=== PATIENT | female | born 1940 | race Caucasian/White ===

== ENCOUNTER 2021-01-27 13:37 | Inpatient (IN) | payer OTHER, BC ==
[2021-01-27] MEDS ORDERED: MORPHINE 4 MG/ML SYR IV PRN (13:51)
[2021-01-27] MEDS ORDERED: ACETAMINOPHEN 500 MG TAB PO PRN (13:51)
[2021-01-27] MEDS ORDERED: DIGOXIN 0.25 MG/ML AMP IV ONE (13:58)
[2021-01-27 14:33] VITALS: BMI 24.9
[2021-01-27] MEDS ORDERED: ENOXAPARIN 80 MG/0.8 ML SQ ONE (17:00)
[2021-01-27] MEDS: ALPRAZOLAM 0.25 MG TABLET PO PRN (19:49)
[2021-01-27] MEDS ORDERED: METOPROLOL TAR 25 MG TAB PO SCH (21:00)
[2021-01-27 23:51] VITALS: O2SAT 97
[2021-01-28 03:29] LABS: Absolute Lymphocytes (CBC) 1.8 K/uL (0.7-4.9); Hematocrit 35.8 % (36.0-45.0); Lymphocytes % 40.5 % (15.3-44.8); MPV 8.4 fL (7.6-11.3); RBC Red Blood Cell Count 3.76 M/uL (3.86-4.86)
[2021-01-28 03:59] LABS: BUN Blood Urea Nitrogen 15 mg/dL (7-18); Bicarbonate 26 mmol/L (21-32); Glucose Level 86 mg/dL (74-106); HDL Cholesterol 41 mg/dL (40-60); LDL Cholesterol, Calculated 177 (<130); NT PRO-BNP 2905 pg/mL (<450); Potassium 4.1 mmol/L (3.5-5.1); Sodium Level 143 mmol/L (136-145); Troponin I < 0.02 ng/mL (0.0-0.045)
[2021-01-28] MEDS ORDERED: ENOXAPARIN 80 MG/0.8 ML SQ SCH (05:00)
[2021-01-28 05:16] LABS: Blood Morphology Comment NOT SEEN (NOT SEEN); Platelet Estimate ADEQ
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
[2021-01-28] MEDS ORDERED: SOTALOL HCL 80 MG TAB PO ONE (07:18)
[2021-01-28] MEDS: ASPIRIN 81 MG CHEWABLE TABLET PO SCH (08:46)
[2021-01-28] MEDS: DOCOSAHEXANOIC AC/EPA 1000 MG PO SCH (08:48)
[2021-01-28] MEDS: LEVOTHYROXINE SOD 0.075 MG TAB PO SCH (08:48)
[2021-01-28] MEDS: PANTOPRAZOLE 40MG TABLET PO SCH (08:54)
[2021-01-28] MEDS ORDERED: ASPIRIN EC 81 MG TAB PO SCH (09:00)
[2021-01-28] MEDS ORDERED: ENOXAPARIN 40 MG/0.4 ML SQ SCH (09:00)
[2021-01-28] MEDS ORDERED: HOME MED 1 EA UNK (Omeprazole [Omeprazole] 20 MG Capsule.Dr) PO SCH (09:00)
--- NOTE | 2021-01-28 13:00 | ECHO ---
HEIGHT: 5 ft 8 in WEIGHT: 164 lb 0 oz DATE OF STUDY: 01/28/[address]: Nilton Grady MD 2-DIMENSIONAL: YES M.MODE: YES DOPPLER: YES COLOR FLOW: YES TDS: NO PORTABLE: NO DEFINITY: NO BUBBLE STUDY: NO DIAGNOSIS: ATRIAL FIBRILLATION CARDIAC HISTORY: CATHERIZATION: SURGERY: PROSTHETIC VALVE: PACEMAKER: MEASUREMENTS (cm) DIASTOLIC (NORMALS) SYSTOLIC (NORMALS) IVSd 1.1 (0.6-1.2) LA Diam 4.1 (1.9-4.0) LVEF 69% LVIDd 3.9 (3.5-5.7) LVIDs 2.4 (2.0-3.5) %FS 38% LVPWd 1.1 (0.6-1.2) Ao Diam 2.5 (2.0-3.7) 2 DIMENSIONAL ASSESSMENT: RIGHT ATRIUM: NORMAL LEFT ATRIUM: DILATED RIGHT VENTRICLE: NORMAL LEFT VENTRICLE: NORMAL TRICUSPID VALVE: NORMAL MITRAL VALVE: NORMAL PULMONIC VALVE: NORMAL AORTIC VALVE: NORMAL PERICARDIAL EFFUSION: NONE AORTIC ROOT: NORMAL LEFT VENTRICULAR WALL MOTION: NORMAL DOPPLER/COLOR FLOW: NORMAL COMMENTS: MILD LEFT ATRIAL ENLARGEMENT. NORMAL LEFT VENTRICULAR SIZE AND FUNCTION. NO WALL MOTION ABNORMALITY. NO THROMBUS. ATRIAL FIBRILLATION. TECHNOLOGIST: Sanjiv WALTON
[2021-01-28] MEDS: SOTALOL HCL 80 MG TAB PO SCH (17:27)
[2021-01-28] MEDS: APIXABAN 5 MG TABLET PO SCH ×2 (17:28→19:54)
[2021-01-28] MEDS: ALPRAZOLAM 0.25 MG TABLET PO PRN (19:42)
[2021-01-28] MEDS ORDERED: EZETIMIBE 10 MG TAB PO SCH (21:00)
[2021-01-29] MEDS: LEVOTHYROXINE SOD 0.075 MG TAB PO SCH (06:00)
[2021-01-29] MEDS: SOTALOL HCL 80 MG TAB PO SCH (06:15)
--- NOTE | 2021-01-29 09:08 | RAD REPORT ---
EXAM DESCRIPTION: CT - Chest For Pe Angio - 01/29/2021 8:48 am CLINICAL HISTORY: Shortness of breath and atrial fibrillation COMPARISON: None. TECHNIQUE: Dynamically enhanced axial 3 mm thick images of the chest were obtained during administra tion of <100> mL Isovue 370 IV contrast. Coronal and oblique reconstruction images were generated and reviewed. Exam utilizes a protocol for optimal evaluation of pulmonary arterial tree. Maximum intensity projections 3D imaging was utilized All CT scans are performed using dose optimization technique as appropriate and may include automated exposure control or mA/KV adjustment according to patient size. FINDINGS: A pulmonary embolus is not seen. A thoracic aortic aneurysm is not noted. A pleural effusion is not seen. A pericardial effusion is not seen. A lung consolidation is not present. Centrilobular emphysema is present. Calcified hilar and calcifie d mediastinal nodes are present. Calcified lung granulomas IMPRESSION: Negative for a pulmonary embolism. Calcified hilar, calcified mediastinal lymph nodes and calcified lung granulomas indicative of prior granulomatous disease
[2021-01-29 09:20] VITALS: BP 131/70; TEMP 97
[2021-01-29] MEDS ORDERED: SOTALOL HCL 80 MG TAB PO ONE (09:21)
[2021-01-29] MEDS: DOCOSAHEXANOIC AC/EPA 1000 MG PO SCH (10:14)
[2021-01-29] MEDS: APIXABAN 5 MG TABLET PO SCH (10:15)
[2021-01-29] MEDS: ASPIRIN 81 MG CHEWABLE TABLET PO SCH (10:15)
[2021-01-29] MEDS: PANTOPRAZOLE 40MG TABLET PO SCH (10:15)
--- NOTE | 2021-01-29 10:52 | P.PN ---
Subjective Date of Service: 01/28/21 Subjective: No new changes, No C/O voiced, Improving Review of Systems 10-point ROS is otherwise unremarkable Physical Examination - Vital Signs Temperature: 97 F Blood Pressure: 131/70 Pulse: 88 Respirations: 18 Pulse Ox (%): 96 - Physical Exam General: Alert, In no apparent distress, Oriented x3 Respiratory: Diminished, Crackles/rales Cardiovascular: Regular rate/rhythm, Normal S1 S2, Systolic murmur Gastrointestinal: Normal bowel sounds, Soft and benign, Non-distended, No tenderness Musculoskeletal: No clubbing, No swelling, No tenderness Neurological: Sensation intact, Cranial nerves 3-12 intact - Studies Medications List Reviewed: Yes Assessment & Plan - Problems (Diagnosis) (1) Atrial fibrillation with rapid ventricular response Current Visit: Yes Status: Acute (2) Hypothyroid Current Visit: Yes Status: Acute (3) HTN (hypertension) Current Visit: Yes Status: Acute - Plan Plan: 1. Continue with medication for rate control; sotalol 80 mg b.i.d. along with anticoagulation 2. Echocardiogram-LV function 3. Cardiology consultation appreciated 4. Thyroid studies are NL 5. CT chest pending as patient haqs some dyspnea 6. Monitor on telemetry 7. Gentle hydration 8. GI and DVT prophylaxis Discharge Plan: Home Plan to discharge in: Greater than 2 days - Advance Directives Does patient have a Living Will: No Does patient have a Durable POA for Healthcare: No - Code Status/Comfort Care Code Status: Full Code Critical Care: No Time Spent Managing PTS Care (In Minutes): 35
--- NOTE | 2021-01-31 09:44 | CON ---
Date of Consultation: 01/28/2021 Reason For Consultation: Atrial fibrillation. History Of Present Illness: Ms. Rooney is an 80-year-old woman with history of dyslipidemia, hyperte nsion, hypothyroidism, gastroesophageal reflux disease, came in with palpitation, atrial fibrillation , was found to have heart rate in the upper 80s, was taking metoprolol 50 b.i.d. at home. [place] palpi tation and felt some chest pain with her atrial fibrillation. Denied PND, orthopnea, or pedal edema. Denied any syncope. Denied any fever or chills. Denied any nausea, vomiting, or diaphoresis. Past Medical History: As stated above. Allergies: SHE IS ALLERGIC TO LIPITOR. Review of Systems: Negative. Social History: Negative. Family History: Negative. Medications: Include omeprazole, aspirin, Synthroid, lisinopril, metoprolol 50 b.i.d. Physical Examination: General: She was in atrial fibrillation at the rate of 80s. No acute distress. Vital Signs: Stable. Afebrile. HEENT: Negative. Neck: Supple without any bruit, lymphadenopathy, JVD, or thyromegaly. Chest: Clear to auscultation and percussion. Cardiac: Irregularly irregular rhythm and rate without murmurs, gallops, or rubs. Abdomen: Benign. Extremities: No clubbing, cyanosis, or edema. Diagnostic Data: All normal except for the atrial fibrillation. Impression And Plan: Atrial fibrillation, new-onset. I will switch her from metoprolol to sotalol 8 0 mg b.i.d. Obtain an echocardiogram. She needs to be on an anticoagulant when she goes home, yolande Resendiz or Xarelto, and leave that after Dr. Grady will see what the echocardiogram shows. STEPHEN/RHONDA Voice ID: [id number] Report ID: [id number]
--- NOTE | 2021-01-31 10:44 | PN ---
Date of Progress Note: 01/29/2021 Ms. Rooney came in with new onset atrial fibrillation. She was placed on sotalol 80 mg b.i.d. She r emains in atrial fibrillation, rate controlled. No symptoms. Echocardiogram is normal. I think she can go home on Betapace 80 b.i.d. instead of the metoprolol. Continue her lisinopril, Synthroid, as pirin, omeprazole. She needs to be on an anticoagulant. I will leave that up to Dr. Una maki her he wants to put her on Xarelto or Eliquis. I will see her in the office in the next week or two. She will need an outpatient Lexiscan and if she remains in atrial fibrillation in the next 3 weeks, I would do an electric cardioversion. STEPHEN/RHONDA Voice ID: [id number] Report ID: [id number]
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
== END 2021-01-29 11:49 | disposition home or self-care (01) | DRG 310 ==
LOC: 4TH 13:37
PROVIDERS: ADMIT Hospitalist; ATTEND Hospitalist
DX: I48.91 Unspecified atrial fibrillation (principal); E03.9 Hypothyroidism, unspecified; I10 Essential (primary) hypertension; E78.5 Hyperlipidemia, unspecified
CPT/HCPCS: 36415; 71275; 80048; 80061; 82565; 83880; 84439; 84443; 84484; 85025; 93306; J1160; Q9967

== ENCOUNTER 2021-03-19 10:23 | Day surgery (SDC) | payer OTHER, BC ==
[2021-03-17 12:15] LABS: Protime INR 1.05
--- NOTE | 2021-03-17 12:20 | RAD REPORT ---
EXAM DESCRIPTION: RAD - Chest Pa And Lat (2 Views) - 03/17/2021 12:08 pm CLINICAL HISTORY: preop COMPARISON: Chest For Pe Angio dated 01/29/2021 FINDINGS: No evidence of edema or pneumonia. The heart size is within normal limits.No acute osseous abnormality. No significant pleural effusions or pneumothorax. Calcified nodule in the right mid aster g. IMPRESSION: No acute cardiopulmonary disease.
[2021-03-17 12:22] LABS: Potassium 4.8 mmol/L (3.5-5.1)
[2021-03-17 12:27] LABS: Absolute Lymphocytes (CBC) 1.1 K/uL (0.7-4.9); Hematocrit 38.7 % (36.0-45.0); Lymphocytes % 27.3 % (15.3-44.8); RBC Red Blood Cell Count 4.03 M/uL (3.86-4.86)
--- NOTE | 2021-03-18 16:57 | EKG ---
Test Date: 2021-03-17 Test Time: 10:45:57 Semiconductor Technician: KEEGAN MEASUREMENT RESULTS: Intervals: Rate: 56 MS: 198 QRSD: 126 QT: 472 QTc: 455 [place]: P: 86 MS: 198 QRS: 8 T: 51 INTERPRETIVE STATEMENTS: Sinus bradycardia Left bundle branch block Abnormal ECG No previous ECG available for comparison Electronically Signed On 03-18-21 16:53:56 CDT by Chuy Martínez
[2021-03-19] MEDS ORDERED: NA CHLORIDE 0.9% 500 ML ONE (11:19)
[2021-03-19] MEDS ORDERED: MIDAZOLAM HCL 2 MG/2 ML INJ ONE (11:58)
[2021-03-19] MEDS ORDERED: FENTANYL CITR 100 MCG/2 ML ONE (11:58)
[2021-03-19] MEDS ORDERED: NA CHLORIDE 0.9% 0 ML ONE (11:59)
[2021-03-19] MEDS ORDERED: ATROPINE SULF 1 MG/10 ML SYR IV ONE (11:59)
[2021-03-19] MEDS ORDERED: HEPA 1000U/500MLS 1,000 UNIT/500 ML BAG IV ONE (12:00)
[2021-03-19 12:47] VITALS: TEMP 96.9
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
[2021-03-19 14:04] VITALS: BP 165/60; O2SAT 99
== END 2021-03-19 14:34 | disposition home or self-care (01) ==
LOC: CCL 10:23
DX: I25.10 Atherosclerotic heart disease of native coronary artery without angina pectoris (principal); I48.0 Paroxysmal atrial fibrillation; I10 Essential (primary) hypertension; E78.2 Mixed hyperlipidemia; K21.9 Gastro-esophageal reflux disease without esophagitis; E03.9 Hypothyroidism, unspecified; Z79.01 Long term (current) use of anticoagulants; Z88.8 Allergy status to other drugs, medicaments and biological substances; Z20.822 Contact with and (suspected) exposure to COVID-19
CPT/HCPCS: 93005; 85025; 80048; 36415; 85610; 85730; 71046; 93454; U0003; C1893; C1760; J2250; J3010; J7040; J1644; J0583

== ENCOUNTER 2024-01-23 14:53 | Emergency (ER) | payer OTHER, BC ==
--- OUTSIDE RECORDS SUMMARY | 2024-01-23 14:56 | XMS REPORT | Continuity of Care Document ---
Author Name Unknown Address [address] [facility]. [address] [place] [address] [facility] thconnect Address [address] [facility] [address] [place] [address] Care Team Providers Care Route Sales Representative Name Role Phone Toney Nava Attending Clinician Unavailable Payers Payer Name Policy Type Policy Number Effective Date Expirati on Date Source [place] [address] [id number] 2020 00:00:00 [facility] Problems Condition Name Condition Details Condition Category Status Onset Date Resolution Date Last Treatment Date Treating Clinician Comments Source [id number] Acquired hypothyroi dism Problem [facility] [id number] Chronic obstructiv e pulmonary disease, unspecifie d COPD type Problem [facility] [id number] Pulmonary nodule Problem [facility] Essential hypertensi on Essential (primary) hypertensi on Problem [facility] [id number] Mixed hyperlipid emia Problem [facility] [id number] Cardiac arrhythmia , unspecifie d cardiac arrhythmia type Problem [facility] [id number] Lung granuloma Problem [facility] Atrial fibrillati on PAF (paroxysma l atrial fibrillati on) Problem [facility] [id number] Coronary artery disease involving [place] heart without angina pectoris, unspecifie d vessel or lesion type Problem [facility] Malignant neoplasm of upper lobe, bronchus or lung Lung cancer, upper lobe Problem [facility] Social History Social Habit Start Date Stop Date Quantity Comments Source Sex Assigned At [facility] History of Tobacco Use [facility] Smoking Status Start Date Stop Date Source Former Smoker 2023-12-20 00:00:00 2023-12-20 00:00:00 [facility] Never Smoker [facility] Medications Ordered Medication Name Filled Medication Name Start Date Stop Date Current Medication? Ordering Clinician Indication Dosage Frequency Signature (SIG) Comments Components Source Lisinopril 10 MG Lisinopril 10 MG 18 00:00: 00 No 1{table t} QD Lisinopril 10 MG Tiotropium [place] Monohydrate 18 MCG Tiotropium [place] Monohydrate 18 MCG 1- 00:00: 00 No QD Tiotropium [place] Monohydrat e 18 MCG Tiotropium [place] Monohydrate 18 MCG Tiotropium [place] Monohydrate 18 MCG 1-11 00:00: 00 No QD Tiotropium [place] Monohydrat e 18 MCG Tiotropium [place] Monohydrate 18 MCG Tiotropium [place] Monohydrate 18 MCG 1-11 00:00: 00 No QD Tiotropium [place] Monohydrat e 18 MCG Spiriva Respimat 1.25 MCG/ACT Spiriva Respimat 1.25 MCG/ACT 2023-0 1-04 00:00: 00 No 2{puffs } QD Spiriva Respimat 1.25 MCG/ACT Spiriva Respimat 1.25 MCG/ACT Spiriva Respimat 1.25 MCG/ACT 2023-0 1-04 00:00: 00 No 2{puffs } QD Spiriva Respimat 1.25 MCG/ACT Spiriva Respimat 1.25 MCG/ACT Spiriva Respimat 1.25 MCG/ACT 2023-0 1-04 00:00: 00 No 2{puffs } QD Spiriva Respimat 1.25 MCG/ACT Simvastatin 40 MG Simvastatin 40 MG No Simvastati n 40 MG amLODIPine Besylate 5 MG amLODIPine Besylate 5 MG No 1{table t} QD amLODIPine Besylate 5 MG Eliquis 5 MG Eliquis 5 MG No 1{table t} BID Eliquis 5 MG Ezetimibe 10 MG Ezetimibe 10 MG No Ezetimibe 10 MG Multivitami n Adults 50+ Multivitami n Adults 50+ No Multivitam in Adults 50+ Aspirin 81 MG Aspirin 81 MG No 1{table t} QD Aspirin 81 MG Sotalol HCl 80 MG Sotalol HCl 80 MG No Sotalol HCl 80 MG Levothyroxi ne Sodium 75 MCG Levothyroxi ne Sodium 75 MCG No Levothyrox ine Sodium 75 MCG Simvastatin 40 MG Simvastatin 40 MG No Simvastati n 40 MG amLODIPine Besylate 5 MG amLODIPine Besylate 5 MG No 1{table t} QD amLODIPine Besylate 5 MG Eliquis 5 MG Eliquis 5 MG No 1{table t} BID Eliquis 5 MG Ezetimibe 10 MG Ezetimibe 10 MG No Ezetimibe 10 MG Multivitami n Adults 50+ Multivitami n Adults 50+ No Multivitam in Adults 50+ Aspirin 81 MG Aspirin 81 MG No 1{table t} QD Aspirin 81 MG Sotalol HCl 80 MG Sotalol HCl 80 MG No Sotalol HCl 80 MG Levothyroxi ne Sodium 75 MCG Levothyroxi ne Sodium 75 MCG No Levothyrox ine Sodium 75 MCG Simvastatin 40 MG Simvastatin 40 MG No Simvastati n 40 MG amLODIPine Besylate 5 MG amLODIPine Besylate 5 MG No 1{table t} QD amLODIPine Besylate 5 MG Eliquis 5 MG Eliquis 5 MG No 1{table t} BID Eliquis 5 MG Eliquis 5 MG Eliquis 5 MG No 1{table t} BID Eliquis 5 MG Ezetimibe 10 MG Ezetimibe 10 MG No Ezetimibe 10 MG Multivitami n Adults 50+ Multivitami n Adults 50+ No Multivitam in Adults 50+ Rice 3 Rice 3 No Rice 3 Aspirin 81 MG Aspirin 81 MG No 1{table t} QD Aspirin 81 MG Sotalol HCl 80 MG Sotalol HCl 80 MG No Sotalol HCl 80 MG Levothyroxi ne Sodium 75 MCG Levothyroxi ne Sodium 75 MCG No Levothyrox ine Sodium 75 MCG Simvastatin 40 MG Simvastatin 40 MG No Simvastati n 40 MG amLODIPine Besylate 5 MG amLODIPine Besylate 5 MG No 1{table t} QD amLODIPine Besylate 5 MG Eliquis 5 MG Eliquis 5 MG No 1{table t} BID Eliquis 5 MG Levothyroxi ne Sodium 75 MCG Levothyroxi ne Sodium 75 MCG No Levothyrox ine Sodium 75 MCG Sotalol HCl 80 MG Sotalol HCl 80 MG No Sotalol HCl 80 MG Ezetimibe 10 MG Ezetimibe 10 MG No Ezetimibe 10 MG Ezetimibe 10 MG Ezetimibe 10 MG No Ezetimibe 10 MG Multivitami n Adults 50+ Multivitami n Adults 50+ No Multivitam in Adults 50+ Simvastatin 40 MG Simvastatin 40 MG No Simvastati n 40 MG Eliquis 5 MG Eliquis 5 MG No 1{table t} BID Eliquis 5 MG Levothyroxi ne Sodium 75 MCG Levothyroxi ne Sodium 75 MCG No Levothyrox ine Sodium 75 MCG Sotalol HCl 80 MG Sotalol HCl 80 MG No Sotalol HCl 80 MG Aspirin 81 MG Aspirin 81 MG No 1{table t} QD Aspirin 81 MG Aspirin 81 MG Aspirin 81 MG No 1{table t} QD Aspirin 81 MG Ferrous Sulfate 325 (65 Fe) MG Ferrous Sulfate 325 (65 Fe) MG No 1{table t} Ferrous Sulfate 325 (65 Fe) MG Simvastatin 40 MG Simvastatin 40 MG No Simvastati n 40 MG amLODIPine Besylate 10 MG amLODIPine Besylate 10 MG No QD amLODIPine Besylate 10 MG Eliquis 5 MG Eliquis 5 MG No 1{table t} BID Eliquis 5 MG Rice 3 Rice 3 No Rice 3 Levothyroxi ne Sodium 75 MCG Levothyroxi ne Sodium 75 MCG No Levothyrox ine Sodium 75 MCG Sotalol HCl 80 MG Sotalol HCl 80 MG No Sotalol HCl 80 MG Ezetimibe 10 MG Ezetimibe 10 MG No Ezetimibe 10 MG Aspirin 81 MG Aspirin 81 MG No 1{table t} QD Aspirin 81 MG Simvastatin 40 MG Simvastatin 40 MG No Simvastati n 40 MG amLODIPine Besylate 10 MG amLODIPine Besylate 10 MG No QD amLODIPine Besylate 10 MG Eliquis 5 MG Eliquis 5 MG No 1{table t} BID Eliquis 5 MG Rice 3 Rice 3 No Rice 3 Levothyroxi ne Sodium 75 MCG Levothyroxi ne Sodium 75 MCG No Levothyrox ine Sodium 75 MCG Sotalol HCl 80 MG Sotalol HCl 80 MG No Sotalol HCl 80 MG Ezetimibe 10 MG Ezetimibe 10 MG No Ezetimibe 10 MG Aspirin 81 MG Aspirin 81 MG No 1{table t} QD Aspirin 81 MG Simvastatin 40 MG Simvastatin 40 MG No Simvastati n 40 MG amLODIPine Besylate 10 MG amLODIPine Besylate 10 MG No QD amLODIPine Besylate 10 MG Ezetimibe 10 MG Ezetimibe 10 MG No Ezetimibe 10 MG Multivitami n Adults 50+ Multivitami n Adults 50+ No Multivitam in Adults 50+ Aspirin 81 MG Aspirin 81 MG No 1{table t} QD Aspirin 81 MG Sotalol HCl 80 MG Sotalol HCl 80 MG No Sotalol HCl 80 MG Levothyroxi ne Sodium 75 MCG Levothyroxi ne Sodium 75 MCG No Levothyrox ine Sodium 75 MCG Simvastatin 40 MG Simvastatin 40 MG No Simvastati n 40 MG amLODIPine Besylate 5 MG amLODIPine Besylate 5 MG No 1{table t} QD amLODIPine Besylate 5 MG Eliquis 5 MG Eliquis 5 MG No 1{table t} BID Eliquis 5 MG Ezetimibe 10 MG Ezetimibe 10 MG No Ezetimibe 10 MG Dulcolax Dulcolax No Dulcolax Aspirin 81 MG Aspirin 81 MG No 1{table t} QD Aspirin 81 MG Sotalol HCl 80 MG Sotalol HCl 80 MG No Sotalol HCl 80 MG Levothyroxi ne Sodium 75 MCG Levothyroxi ne Sodium 75 MCG No Levothyrox ine Sodium 75 MCG Simvastatin 40 MG Simvastatin 40 MG No Simvastati n 40 MG amLODIPine Besylate 5 MG amLODIPine Besylate 5 MG No 1{table t} QD amLODIPine Besylate 5 MG Eliquis 5 MG Eliquis 5 MG No 1{table t} BID Eliquis 5 MG Ezetimibe 10 MG Ezetimibe 10 MG No Ezetimibe 10 MG Multivitami n Adults 50+ Multivitami n Adults 50+ No Multivitam in Adults 50+ Aspirin 81 MG Aspirin 81 MG No 1{table t} QD Aspirin 81 MG Sotalol HCl 80 MG Sotalol HCl 80 MG No Sotalol HCl 80 MG Levothyroxi ne Sodium 75 MCG Levothyroxi ne Sodium 75 MCG No Levothyrox ine Sodium 75 MCG Vital Signs Vital Name Observation Time Observation Value Comments S jesus height 2023-12-20 11:20:00 68.5 [in_i] Comm on [facility] weight 2023-12-20 11:20:00 147.4 [lb_av] Co on [facility] temperature 2023-12-20 11:20:00 97.5 [degF] Com mon [facility] bmi 2023-12-20 11:20:00 22.08 kg/m2 Comm on [facility] oximetry 2023-12-20 11:20:00 93 % Commo n [facility] respiratory rate 2023-12-20 11:20:00 16 /min [facility] blood pressure systolic 2023-12-20 11:20:00 148 mm[Hg] [facility] blood pressure diastolic 2023-12-20 11:20:00 72 mm[Hg] [facility] height 2023-11-18 10:40:00 68.5 [in_i] Comm on [facility] weight 2023-11-18 10:40:00 145.0 [lb_av] Co [facility] temperature 2023-11-18 10:40:00 97.3 [degF] Com [facility] bmi 2023-11-18 10:40:00 21.72 kg/m2 Comm on [facility] oximetry 2023-11-18 10:40:00 96 % Commo n [facility] respiratory rate 2023-11-18 10:40:00 16 /min Common [facility] blood pressure systolic 2023-11-18 10:40:00 148 mm[Hg] Common [facility] blood pressure diastolic 2023-11-18 10:40:00 74 mm[Hg] [facility] height 2023-08-19 10:00:00 68.5 [in_i] Comm on [facility] weight 2023-08-19 10:00:00 155.6 [lb_av] Co mmon [facility] temperature 2023-08-19 10:00:00 96.6 [degF] Com [facility] bmi 2023-08-19 10:00:00 23.31 kg/m2 Comm on [facility] oximetry 2023-08-19 10:00:00 96 % Commo n [facility] respiratory rate 2023-08-19 10:00:00 16 /min Common [facility] blood pressure systolic 2023-08-19 10:00:00 132 mm[Hg] [facility] diastolic 2023-08-19 10:00:00 76 mm[Hg] [facility] height 2023-08-05 10:40:00 68.5 [in_i] Comm on [facility] weight 2023-08-05 10:40:00 153.6 [lb_av] Co mmon [facility] temperature 2023-08-05 10:40:00 97.5 [degF] Com [facility] bmi 2023-08-05 10:40:00 23.01 kg/m2 Comm on [facility] oximetry 2023-08-05 10:40:00 97 % Commo n [facility] respiratory rate 2023-08-05 10:40:00 16 /min Common [facility] blood pressure systolic 2023-08-05 10:40:00 124 mm[Hg] Common [facility] blood pressure diastolic 2023-08-05 10:40:00 66 mm[Hg] Common [facility] height 2023-07-22 15:40:00 68.5 [in_i] Comm on [facility] weight 2023-07-22 15:40:00 154.0 [lb_av] Co mmon [facility] temperature 2023-07-22 15:40:00 97.2 [degF] Com mon [facility] bmi 2023-07-22 15:40:00 23.07 kg/m2 Comm on [facility] oximetry 2023-07-22 15:40:00 94 % Commo n [facility] respiratory rate 2023-07-22 15:40:00 16 /min Common [facility] blood pressure systolic 2023-07-22 15:40:00 126 mm[Hg] [facility] blood pressure diastolic 2023-07-22 15:40:00 74 mm[Hg] [facility] height 2023-06-21 15:00:00 68.5 [in_i] Comm on [facility] weight 2023-06-21 15:00:00 156.4 [lb_av] Co mmon [facility] temperature 2023-06-21 15:00:00 97.2 [degF] Com [facility] bmi 2023-06-21 15:00:00 23.43 kg/m2 Comm on [facility] oximetry 2023-06-21 15:00:00 97 % Commo n [facility] respiratory rate 2023-06-21 15:00:00 16 /min Common [facility] blood pressure systolic 2023-06-21 15:00:00 140 mm[Hg] Common [facility] blood pressure diastolic 2023-06-21 15:00:00 68 mm[Hg] [facility] height 2023-06-21 15:40:00 68.5 [in_i] Comm on [facility] weight 2023-06-21 15:40:00 156.4 [lb_av] Co mmon [facility] temperature 2023-06-21 15:40:00 97.2 [degF] Com [facility] bmi 2023-06-21 15:40:00 23.43 kg/m2 Comm on [facility] oximetry 2023-06-21 15:40:00 97 % Commo n [facility] respiratory rate 2023-06-21 15:40:00 16 /min [facility] blood pressure systolic 2023-06-21 15:40:00 140 mm[Hg] [facility] blood pressure diastolic 2023-06-21 15:40:00 68 mm[Hg] [facility] Encounters Start Date/Time End Date/Time Encounter Type Admission Type Attending Clinicians Care Facility Care Department Encounter ID Source 2023-11-16 08:37:00 Outpatient Toney Nava [facility] [id number] [facility] 2023-08-17 10:27:00 Outpatient Toney Nava [facility] [id number] [facility] 2023-08-13 13:05:00 Outpatient Toney Nava [facility] [id number] [facility] 2023-07-20 07:28:00 Outpatient Toney Nava [facility] [id number] [facility] 2023-07-07 15:35:00 Outpatient Toney Nava [facility] [id number] [facility] 2023-06-21 14:16:01 Outpatient Toney Nava [facility] [id number] [facility] 2023-12-20 00:00:00 2023-12-20 00:00:00 OFFICE VISIT ESTAB PT LEVEL 4 [facility] [id number] [facility] 2023-11-22 00:00:00 2023-11-22 00:00:00 (TEL) [facility]C [facility] [id number] [facility] 2023-11-18 00:00:00 2023-11-18 00:00:00 OFFICE VISIT ESTAB PT LEVEL 4 [facility] [id number] [facility] 2023-08-19 00:00:00 2023-08-19 00:00:00 OFFICE VISIT ESTAB PT LEVEL 4 [facility] ST[facility] [id number] [facility] 2023-08-12 00:00:00 2023-08-12 00:00:00 (TEL) STLMLC ST[facility] [id number] [facility] 2023-08-09 00:00:00 2023-08-09 00:00:00 (TEL) STLMLC STL[facility] [id number] [facility] 2023-08-05 00:00:00 2023-08-05 00:00:00 OFFICE VISIT ESTAB PT LEVEL 4 [facility] ST[facility] [id number] [facility] 2023-07-22 00:00:00 2023-07-22 00:00:00 OFFICE VISIT ESTAB PT LEVEL 3 [facility] [id number] [facility] 2023-07-16 00:00:00 2023-07-16 00:00:00 (TEL) STLMLC ST[facility] [id number] [facility] 2023-06-21 00:00:00 2023-06-21 00:00:00 OFFICE VISIT NEW PT LEVEL 4 [facility] ST[facility] [id number] [facility] 2023-06-21 00:00:00 2023-06-21 00:00:00 SUB ANNUAL [facility] VISIT [facility] [id number] [facility] 2023-06-21 00:00:00 2023-06-21 00:00:00 (TEL) STL[facility]C STL[facility] [id number] [facility]
[2024-01-23] MEDS ORDERED: SILVER NITRATE 1 APPL TOP ONE (16:21)
--- NOTE | 2024-01-23 16:45 | EDPHYS ---
Physician Documentation [facility] Name: Irene Rooney Age: 83 yrs Sex: Female : 1940 Arrival Date: 01/23/2024 Time: 14:53 Bed 7 Private MD: ED Physician Gray Jameson HPI: 01/22 18:38 This 83 yrs old Female presents to ER via EMS with complaints of Wound Check - left sb4 ankle. 18:38 Patient states that she was taking off her pantyhose when she disrupted a wound on her sb4 left medial ankle causing it to bleed profusely. She is on blood thinners. She is not sure what the wound previously was, she does not think it was an insect bite, thinks it may have been a mole as it has been there for a few months. Historical: - Allergies: 15:22 No Known Allergies; ap3 - Home Meds: 15:18 Eliquis oral [Active]; ap3 - Immunization history:: Adult Immunizations up to date. - Infectious Disease History:: Denies. - Social history:: Smoking status: Patient denies any tobacco usage or history of. ROS: 18:38 Constitutional: Negative for fever, chills, and weight loss, sb4 18:38 Skin: Positive for per HPI, 18:38 All other systems are negative, Exam: 18:40 Constitutional: This is a well developed, well nourished patient who is awake, alert, sb4 and in no acute distress. Head/Face: Normocephalic, atraumatic. Eyes: Extra-ocular motions intact. Periorbital areas with no swelling, redness, or edema. ENT: Mucous membranes moist. 18:40 Skin: lesion(s), noted, and can be described as bleeding, located on the left medial malleolus, Vital Signs: 15:16 BP 131 / 66; Pulse 58; Resp 18; Temp 98.8; Pulse Ox 94% on R/A; ap3 Procedures: 18:40 2 silver nitrate sticks applied to wound. Hemostasis achieved. sb4 MDM: 15:16 Patient medically screened. sb4 18:40 Data reviewed: vital signs, nurses notes, EMS record, and as a result, I will discharge sb4 patient. Counseling: I had a detailed discussion with the patient and/or guardian regarding the historical points, exam findings, and any diagnostic results supporting the discharge/admit diagnosis, to return to the emergency department if symptoms worsen or persist or if there are any questions or concerns that arise at home. Administered Medications: 16:42 Drug: Silver Nitrate Applicators Topical 3 application Topical once Route: Topical; sb4 Site: affected area; Disposition: 19:35 Co-signature as Attending Physician, Gray Jameson MD I reviewed the patient's care rt provided by the Advanced Practice Provider and agree with the diagnosis and treatment plan. Disposition Summary: 01/23/24 16:43 Discharge Ordered Notes: Location: Home sb4 Problem: new sb4 Symptoms: are resolved sb4 Condition: Stable sb4 Diagnosis - Disruption of wound, not elsewhere classified sb4 Followup: sb4 - With: Emergency Department - When: As needed - Reason: Worsening of condition Discharge Instructions: - Discharge Summary Sheet sb4 - Wound Dehiscence, [id number] sb4 Forms: - Patient Portal Instructions sb4 - Leadership Thank You Letter sb4 Signatures: Erin Hull RN RN ap3 Shelly Carey PA-C PA-C sb4 Gray Jameson MD MD rt Corrections: (The following items were deleted from the chart) 18:40 18:38 Patient states that she was taking off her pantyhose when she disrupted a wound sb4 causing it to bleed profusely. She is on blood thinners. She is not sure what the wound previously was, she does not think it was an insect bite, thinks it may have been a mole as it has been there for a few months. sb4
--- NOTE | 2024-01-23 16:45 | ER ---
Nurse's Notes [facility] Name: Irene Rooney Age: 83 yrs Sex: Female : 1940 Arrival Date: 01/23/2024 Time: 14:53 Bed 7 Private MD: Diagnosis: Disruption of wound, not elsewhere classified Presentation: 01/22 15:16 Chief complaint: Patient states: she had what started as an ant bite to her left ankle, ap3 and she scratched the scab off. patient states it started bleeding and hasn't stopped. patient reports being on Eliquis. Coronavirus screen: At this time, the client does not indicate any symptoms associated with coronavirus-19. Ebola Screen: No symptoms or risks identified at this time. Initial Sepsis Screen: Does the patient meet any 2 criteria? No. Patient's initial sepsis screen is negative. Does the patient have a suspected source of infection? No. Patient's initial sepsis screen is negative. Risk Assessment: Do you want to hurt yourself or someone else? Patient reports no desire to harm self or others. Onset of symptoms was January 23, 2024. 15:16 Acuity: JUSTYNA 4 ap3 15:16 Method Of Arrival: EMS ap3 Triage Assessment: 15:19 General: Appears in no apparent distress. Behavior is calm, cooperative, appropriate ap3 for age. Pain: Complains of pain in left foot. Neuro: Level of Consciousness is awake, alert, obeys commands, Oriented to person, place, time, situation, Appropriate for age. Cardiovascular: Patient's skin is warm and dry. Respiratory: Airway is patent Respiratory effort is even, unlabored, Respiratory pattern is regular, symmetrical. GI: No signs and/or symptoms were reported involving the gastrointestinal system. Derm: Wound noted left medial malleolus bleeding noted, pressure dressing applied. Historical: - Allergies: 15:22 No Known Allergies; ap3 - Home Meds: 15:18 Eliquis oral [Active]; ap3 - Immunization history:: Adult Immunizations up to date. - Infectious Disease History:: Denies. - Social history:: Smoking status: Patient denies any tobacco usage or history of. Screenin:20 Abuse screen: Denies threats or abuse. Nutritional screening: No deficits noted. ap3 Tuberculosis screening: No symptoms or risk factors identified. 17:13 [facility] ED Fall Risk Assessment (Adult) History of falling in the last 3 months, ap3 including since admission No falls in past 3 months (0 pts) Confusion or Disorientation No (0 pts) Intoxicated or Sedated No (0 pts) Impaired Gait No (0 pts) Mobility Assist Device Used No (0 pt) Altered Elimination No (0 pt) Score/Fall Risk Level 0 - 2 = Low Risk Oriented to surroundings, Maintained a safe environment, Educated pt \T\ family on fall prevention, incl call for assistance when getting out of bed, Assessed \T\ reinforced patient's understanding of fall precautions, Provided non-skid footwear, Hourly rounding (assess needs \T\ fall precautionary measures) done, Used ambulatory aids as needed (educated on \T\ assisted with), Used gait belt as appropriate. Vital Signs: 15:16 BP 131 / 66; Pulse 58; Resp 18; Temp 98.8; Pulse Ox 94% on R/A; ap3 ED Course: 15:15 Patient arrived in ED. sb4 15:16 [facility] 15:16 Gray Jameson MD is Attending Physician. sb4 15:18 Triage completed. ap3 15:20 Arm band placed on right wrist. ap3 15:20 Patient has correct armband on for positive identification. Bed in low position. Call ap3 light in reach. Side rails up X 1. Provided Education on: call light use, fall risk education . Pulse ox on. NIBP on. 15:39 Erin Hull RN is Primary Nurse. ap3 17:14 Assisted provider with: wound care. ap3 17:14 Patient did not have IV access during this emergency room visit. ap3 Administered Medications: 16:42 Drug: Silver Nitrate Applicators Topical 3 application Topical once Route: Topical; sb4 Site: affected area; Medication: 15:20 VIS not applicable for this client. ap3 Outcome: 16:43 Discharge ordered by . sb4 17:14 Discharged to home ambulatory, ap3 17:14 Condition: good 17:14 Discharge instructions given to patient, Instructed on discharge instructions, follow up and referral plans. Demonstrated understanding of instructions, follow-up care, 17:15 Patient left the ED. ap3 Signatures: Erin Hull RN RN ap3 Brown, Shelly, PA-C PA-C sb4
[2024-01-23 23:30] VITALS: BP 131/66; TEMP 98.8; O2SAT 94
== END 2024-01-23 17:15 | disposition home or self-care (01) ==
LOC: ER 14:53
DX: T81.30XA Disruption of wound, unspecified, initial encounter (principal); Z79.01 Long term (current) use of anticoagulants
CPT/HCPCS: 99284

== ENCOUNTER 2024-09-20 09:16 | Day surgery (SDC) | payer OTHER, BC ==
[2024-09-20 09:16] LABS: Absolute Eosinophils 0.1 K/uL (0-0.5); Absolute Lymphocytes (CBC) 0.9 K/uL (0.7-4.9); Absolute Monocytes 0.9 K/uL (0.1-1.3); Absolute Neutrophil 4.4 K/uL (1.8-8.0); Basophils % 0.7 % (0-1.3); Eosinophils % 1.9 % (0-4.4); Hematocrit 34.5 % (36.0-45.0); Hemoglobin 11.5 g/dL (12.0-15.0); Lymphocytes % 14.6 % (15.3-44.8); MCH 31.5 pg (27.0-35.0); MCHC 33.4 g/dL (32.0-36.0); MCV 94.3 fL (80-100); MPV 8.2 fL (7.6-11.3); Monocytes % 13.6 % (3.3-12.3); Neutrophils % 69.2 % (41.7-73.7); Platelets 301 thou/uL (152-406); RBC Red Blood Cell Count 3.66 M/uL (3.86-4.86); Red Cell Distribution Width 14.8 % (12.1-15.2)
[2024-09-20] MEDS ORDERED: CEFAZOLIN SODIUM 1 GM/VIAL ONE (09:25)
[2024-09-20 09:27] LABS: PT Prothrombin Time 11.3 SECONDS (9.4-12.5); PTT, Activated Partial Thromb 32.2 SECONDS (24.3-36.9); Protime INR 1.08
--- NOTE | 2024-09-20 09:27 | RAD REPORT ---
EXAM: Chest Pa And Lat (2 Views) HISTORY: 84 years Female Pre-op pending mass removal left ankle COMPARISON: 07/12/2023 FINDINGS: LUNGS/PLEURA: The lungs are clear. No pleural effusions or pneumothorax. No pulmonary edema. Calcifie d benign lung nodules. MEDIASTINUM: The mediastinal silhouette is within normal limits CARDIAC: The cardiac silhouette is within normal limits. UPPER ABDOMEN: No significant abnormality. BONES: No acute abnormality. LINES/TUBES/OTHER: N/A IMPRESSION: No evidence of acute cardiopulmonary disease.
[2024-09-20] MEDS ORDERED: ONDANSETRON 4 MG/2 ML VIAL ONE (09:32)
[2024-09-20] MEDS ORDERED: LIDOCAINE 2% MPF 5 ML VIAL ONE (09:32)
[2024-09-20] MEDS ORDERED: FENTANYL CITR 100 MCG/2 ML ONE (09:32)
[2024-09-20] MEDS ORDERED: propofoL 200 MG/20 ML VIAL IV ONE (09:32)
[2024-09-20 09:33] LABS: Anion Gap 8.2 mEq/L (5.0-15.0); Potassium 4.2 mEq/L (3.5-5.1)
[2024-09-20] MEDS: Ringers Lactate 1,000 ML IV ONE (09:45)
[2024-09-20] MEDS ORDERED: dexAMETHasone 4 MG/ML VIAL ONE (10:35)
[2024-09-20] MEDS ORDERED: EPHEDRINE SULF 50 MG/ML VIAL ONE (10:55)
--- NOTE | 2024-09-20 11:01 | P.BOP ---
Preoperative diagnosis: ulcerated skin mass with bleeding Primary procedure: 1. Excision of ulcerated left leg skin mass Secondary procedure: 2. Left leg superficlal vein ligation Estimated blood loss: <10cc Specimen: mass Findings: ulcerated skin mass eroding thru a leg vein, negative for cancer per Dr Kunz Anesthesia: MAC Complications: None Transferred to: Recovery Room Condition: Good
[2024-09-20 12:50] VITALS: BP 129/57; TEMP 96.9; O2SAT 99
--- NOTE | 2024-09-21 15:06 | OP ---
Surgeon: Rodger Villar MD Preoperative Diagnosis: Ulcerated skin mass with bleeding on the left leg. Postoperative Diagnosis: Ulcerated skin mass with bleeding on the left leg. Procedures: Excisional biopsy of ulcerated left leg skin mass with left leg superficial vein ligatio n. Estimated Blood Loss: Less than 10 cc. Findings: Frozen section shows ulcerated mass, but no cancer seen. It was eroding through the leg v ein that was ligated. Negative for cancer by Dr. Simons. Anesthesia: MAC plus local. Indications: This is a case of an 84-year-old patient, apparently for the last few weeks she has bee n bleeding from a lesion on the left leg to the point that she claims she has several units of blood at 1 point becoming more often. She has been in the ER previously, when she had that area cauterized, but once again, it started bleeding and when it starts bleeding it is profuse. The gladys ent was seen by email marketing intern, noticed the history of bleeding, so referred to our office for evaluat ion. We noticed the patient to have an ulcerated mass that is sitting just on top of a large vein hall perficial under the skin. This probably is the reason why it has been bleeding. So excisional biops y of ulcerated mass with frozen section in case it is cancer and also investigation of the area to se e if that vein have to be ligated fully explained to her, which include, but not limited to infection , bleeding, damage to adjacent structures, anesthesia complication, nonhealing wound, RI, and even de ath. She also understands this may not relieve the symptoms. She might need more than one surgical intervention. She understands we might have to ligate that blood vessel causing trouble. She signed the consent. The area of concern was marked by me and the patient in the holding room. Procedure In Detail: The patient brought to the operating room, placed in supine position. Anesthes ia was induced without complication. Left leg was prepped and draped in usual sterile fashion. Now that we have a light on we can see it better. There is an ulcerated lesion on the skin eroding right through the vein. By us just touching, it started bleeding. So we opened the skin and noticed ther e was a vein underneath partially eroded. So we obtained proximal and distal control of that veins. That vein is beyond repair, so we ligated that vein making sure there was no nerve or any structures next to it. We suture ligated that vein proximal and distal. The mass was sent to the pathologist who claimed there was an ulcerated mass, but no cancer. The area was profusely irrigated, hemostasis obtained and then we proceeded to approximate the skin with 3-0 nylon in a running fashion. The pat ient tolerated the procedure well. No bleeding. Local anesthesia was applied at the beginning. Pat ient sent to Recovery in stable condition. Condition: Stable. Disposition: Home. Activity: As tolerated. No heavy lifting. Followup: Follow up in my office in 1 week. Call for appointment [phone]. Keep area dry for 48 ho urs, then may shower. Medications, previously called. OLINDA/RHONDA Voice ID: [id number] Report ID: [id number]
== END 2024-09-20 12:29 | disposition home or self-care (01) ==
LOC: OR 09:16
PROVIDERS: ATTEND Surgery
PROC: 06LY0ZZ Occlusion of Lower Vein, Open Approach (ICD-10-PCS; 2024-09-20)
PROC: 0HBLXZZ Excision of Left Lower Leg Skin, External Approach (ICD-10-PCS; principal; 2024-09-20 11:00)
DX: D17.24 Benign lipomatous neoplasm of skin and subcutaneous tissue of left leg (principal); L97.821 Non-pressure chronic ulcer of other part of left lower leg limited to breakdown of skin
CPT/HCPCS: 36415; 71046; 80048; 85025; 85610; 85730; 88305; 88331; 88332; 93005; J0690; J1100; J2003; J2405; J2704; J3010; J7120